=== PATIENT | male | born 1975 | race Caucasian/White ===

== ENCOUNTER 2019-07-17 22:07 | Emergency (ER) | payer BC, SELFPAY ==
[2019-07-17] MEDS ORDERED: Adacel (T-DAP) 0.5 ML SYRINGE ONE (23:36)
== END 2019-07-17 23:45 | disposition home or self-care (01) ==
LOC: ERS 22:07
DX: L03.011 Cellulitis of right finger (principal); I10 Essential (primary) hypertension; E11.319 Type 2 diabetes mellitus with unspecified diabetic retinopathy without macular edema; E66.9 Obesity, unspecified
CPT/HCPCS: 90471; 90715